=== PATIENT | female | born 1955 | race American Indian/Alaskan Native ===

== ENCOUNTER 2017-02-24 09:43 | Emergency (ER) | payer MEDICAID ==
--- NOTE | 2017-02-24 10:01 | Emergency Department Report ---
ED CPR HPI - General Stated Complaint: CARDIAC ARREST Time Seen by Provider: 02/24/17 09:53 Source: EMS - History of Present Illness Initial Comments: Patient is 61 years old female, alf patient, brought by EMS in a cardiac arrest. Per alf records patient was seen alert this morning and when they went to check back on her, she is not responding, no pulse and CPR started and EMS was called. EMS stated that initial rhythm was asystole and patient remained in asystole all this time. Patient had tracheostomy in place, Ambo- bag started. When she arrived to the ER, Airway confirmed by breath sounds auscultation on both sides. CPR continued and ACLS protocol continued. Patient pupils are fixed, dilated and nonreactive to light. Obvious Rigor mortise and lividity observed. Patient pronounced at 9:50 AM. For further information please refer to code sheet. No family available at this time. Complaint: found unresponsive Place: NH/SNF Bystander CPR Performed: Yes AED Applied by Bystander/Account Manager B2B: Yes Shock Advised: No Initial Findings in the Field: unresponsive, no pulse, systole Associated Injuries: No - Related Data Allergies Allergy/AdvReac Type Severity Reaction Status Date / Time Unable to Assess Allergy Unverified 02/24/17 12:11 ED Review of Systems ROS: Stated complaint: CARDIAC ARREST Other details as noted in HPI Comment: Unobtainable due to pts medical conditions ED Physical Exam - General General appearance: other (rigor mortise and lividity) - Head Head exam: Present: atraumatic - Eye Eye exam: Present: other (pupils are 5 mm, dilated,fixed and non-reactive to light.) - Neck Neck exam: Present: other (tracheostomy in place) - Respiratory Respiratory exam: Present: other (no spontaneous breathing) - Cardiovascular Cardiovascular Exam: Present: other (no heart sounds, no pulse) - GI/Abdominal GI/Abdominal exam: Present: soft, other (PEG tube in place). Absent: distended Critical care attestation.: If time is entered above; I have spent that time in minutes in the direct care of this critically ill patient, excluding procedure time. ED Disposition Clinical Impression: Cardiopulmonary arrest Disposition: DC-20 Is pt being admited?: No Condition: Stable Referrals: SPARKLE WILEY DO [Primary Care Provider] - 3-5 Days
== END 2017-02-24 18:37 ==
LOC: ED 09:43
DX: I46.9 Cardiac arrest, cause unspecified (principal)
CPT/HCPCS: 92950; 99285